=== PATIENT | male | born 1965 | race Caucasian/White ===

== ENCOUNTER 2018-12-19 10:31 | Day surgery (SDC) | payer BC, SELFPAY ==
[~2018-12-19] VITALS: Ht 200.7 cm; Wt 208.6 kg
[~2018-12-19 10:31] MED LIST: ALBU90OI6 INH; ALBU90OI61 INH; DOXY100 PO; METF500C PO; PRED20 PO
[2018-12-19] MEDS ORDERED: METF500 (11:22)
[2018-12-19] MEDS ORDERED: GEMF600 (11:22)
--- NOTE | 2018-12-19 14:59 | NUR ---
12/19/18 1459 Brynn Rhodes PT CLEARED FOR NURSE SEDATION PER DR. SHARMA.
== END 2018-12-19 13:26 | disposition home or self-care (01) ==
LOC: ORSCSDS 10:31
PROVIDERS: Internal Medicine Gastroenterology
PROC: 0DBL8ZX Excision of Transverse Colon, Via Natural or Artificial Opening Endoscopic, Diagnostic (ICD-10-PCS; principal; 2018-12-19 12:00)
PROC: 0DBP8ZX Excision of Rectum, Via Natural or Artificial Opening Endoscopic, Diagnostic (ICD-10-PCS; principal; 2018-12-19 12:00)
DX: Z12.11 Encounter for screening for malignant neoplasm of colon (principal); K63.5 Polyp of colon; K62.1 Rectal polyp; K64.8 Other hemorrhoids; Z83.71 Family history of colonic polyps; G47.33 Obstructive sleep apnea (adult) (pediatric); E11.9 Type 2 diabetes mellitus without complications; K76.0 Fatty (change of) liver, not elsewhere classified; F17.210 Nicotine dependence, cigarettes, uncomplicated; Z79.84 Long term (current) use of oral hypoglycemic drugs; Z79.899 Other long term (current) drug therapy
CPT/HCPCS: 82947; 88305; J2704; J7120